=== PATIENT | female | born 1950 | race Asian ===

== ENCOUNTER → 2023-11-05 | Outpatient (CLI) | payer MEDICARE | END | disposition home or self-care (01) | LOC: RADPV 10:35 | PROVIDERS: ATTEND Student in an Organized Health Care Education/Training Program | DX: R60.0 Localized edema (principal); I25.84 Coronary atherosclerosis due to calcified coronary lesion; I50.20 Unspecified systolic (congestive) heart failure | CPT/HCPCS: 93970 ==